=== PATIENT | female | born 1990 | race Caucasian/White ===

== ENCOUNTER 2019-07-13 07:20 | Emergency (ER) | payer BC, OTHER ==
[2019-07-13 07:33] VITALS: BP 137/67
--- NOTE | 2019-07-13 07:47 | UC ---
Throat Pain/Nasal Charlie HPI - HPI Summary HPI Summary: Ms. Ellsworth started 6 days ago with nasal congestion, cough and sore throat. It has largely gotten better however her throat has gotten markedly worse in the last day or 2. She is unable to sleep because the pain and has difficulty swallowing. - History of Current Complaint Chief Complaint: UCRespiratory Stated Complaint: SORE THROAT Time Seen by Provider: 07/13/19 07:37 Hx Obtained From: Patient Hx Last Menstrual Period: 2 weeeks ago Onset/Duration: Gradual Onset, Lasting Days Severity: Moderate Pain Intensity: 7 Cough: Nonproductive Associated Signs & Symptoms: Positive: Nasal Discharge - Allergies/Home Medications Allergies/Adverse Reactions: Allergies Allergy/AdvReac Type Severity Reaction Status Date / Time No Known Allergies Allergy Verified 07/13/19 07:33 Home Medications: Home Medications Norgestimate-Ethinyl Estradiol [Sprintec 28 Day Tablet] 1 tab PO DAILY 07/13/19 [History Confirmed 07/13/19] SUMAtriptan TAB* [Imitrex TAB*] 50 mg PO Q6H PRN 07/13/19 [History Confirmed ] PMH/Surg Hx/FS Hx/Imm Hx Previously Healthy: Yes - Surgical History Surgical History: None - Social History Alcohol Use: Occasionally Substance Use Type: None Smoking Status (MU): Never Smoked Tobacco Review of Systems All Other Systems Reviewed And Are Negative: Yes Constitutional: Positive: Negative Skin: Positive: Negative ENT: Positive: Sore Throat, Nasal Discharge Respiratory: Positive: Cough Gastrointestinal: Positive: Negative Physical Exam - Summary Physical Exam Summary: She is nontoxic in appearance with stable vital signs. Triage Information Reviewed: Yes Appearance: Well-Appearing Vital Signs: Initial Vital Signs Temp 98.7 F 07/13/19 07:29 Pulse 99 07/13/19 07:29 Resp 18 07/13/19 07:29 BP 137/67 07/13/19 07:29 Pulse Ox 98 07/13/19 07:29 Vital Signs Reviewed: Yes ENT: Positive: Pharyngeal erythema, Nasal congestion Neck: Positive: Supple, Enlarged Nodes @ - Anterior cervical Respiratory: Positive: Chest non-tender, Lungs clear, Normal breath sounds Cardiovascular Exam: Normal Abdominal Exam: Normal Throat Pain/Nasal Course/Dx - Course Course Of Treatment: Her RST is negative and this is likely a viral process. I'm going to treat her symptoms with Robitussin-AC. We spoke about opioid use. - Differential Dx/Diagnosis Provider Diagnosis: Pharyngitis Discharge ED - Sign-Out/Discharge Documenting (check all that apply): Patient Departure All imaging exams completed and their final reports reviewed: No Studies - Discharge Plan Condition: Stable Disposition: HOME Patient Education Materials: Pharyngitis (ED) Referrals: Connor Mae MD [Primary Care Provider] - - Billing Disposition and Condition Condition: STABLE Disposition: Home
== END 2019-07-13 08:11 | disposition home or self-care (01) ==
LOC: UCEAST 07:20
DX: J02.9 Acute pharyngitis, unspecified (principal); R09.89 Other specified symptoms and signs involving the circulatory and respiratory systems
CPT/HCPCS: 87651; 99202; G0463